=== PATIENT | female | born 1955 | race Caucasian/White ===

== ENCOUNTER → 2020-01-20 15:35 | Outpatient (CLI) | payer MEDICARE, SELFPAY ==
--- NOTE | ~2020-01-20 | MM_ITS ---
EXAMINATION: MM screening [facility] BI w shruthi HISTORY: Screening mammogram, family history of breast cancer in her mother. TECHNIQUE: Craniocaudal and mediolateral oblique 3-D tomosynthesis images were obtained and synthetic 2-D images were generated. CAD analysis was submitted and interpreted. COMPARISON: 07/26/2018, 06/16/2017, 05/18/2016, 03/06/2015 BREAST PARENCHYMAL COMPOSITION: There are scattered areas of fibroglandular density. FINDINGS: RIGHT BREAST: There is a possible mass in the middle third of the outer breast best appreciated 6.5 c m from the nipple on the craniocaudal view. LEFT BREAST: There is no evidence of suspicious mass, calcification, or architectural distortion to s uggest malignancy. There has been no significant interval change. IMPRESSION: 1. Possible right breast mass. 2. Additional mammographic views and possible breast ultrasound are recommended. BI-RADS Category 0: Incomplete: Needs additional imaging evaluation. Reviewed, dictated and finalized at location A. IMPRESSION: 1. Possible right breast mass. 2. Additional mammographic views and possible breast ultrasound are recommended . BI-RADS Category 0: Incomplete: Needs additional imaging evaluation.
== END ==
PROVIDERS: PCP Family Medicine; Visit Provider Nurse Practitioner Family
DX: Z12.31 Encounter for screening mammogram for malignant neoplasm of breast (principal); R92.8 Other abnormal and inconclusive findings on diagnostic imaging of breast
CPT/HCPCS: 77063; 77067

== ENCOUNTER → 2020-01-31 09:22 | Outpatient (CLI) | payer MEDICARE, SELFPAY ==
--- NOTE | ~2020-01-31 | MMUS_ITS ---
EXAMINATION: MM diagnostic mammo unilat RT, US breast RT limited HISTORY: Follow-up right breast asymmetry TECHNIQUE: Additional 3-D tomosynthesis images of the right breast were performed and synthetic 2-D i mages were generated. CAD analysis was submitted and interpreted. High resolution right breast ultras ound was performed. COMPARISON: Comparison to multiple prior studies sequentially, with oldest reviewed study dated 03/2016. BREAST PARENCHYMAL COMPOSITION: BREAST PARENCHYMAL COMPOSITION: There are scattered areas of fibroglandular density. FINDINGS: MAMMOGRAPHIC FINDINGS: The focal asymmetry laterally in the right breast compresses with spot views. No suspicious masses, c alcifications or architectural distortion to suggest malignancy. ULTRASOUND: Right breast ultrasound: At 12:00, 3 cm from the nipple, there is a 4 mm cyst. No suspicious masses to suggest malignancy. IMPRESSION: 1. No mammographic or sonographic evidence for malignancy in the right breast. 2. Routine yearly screening mammogram and regular clinical breast examination are recommended. BI-RADS Category 2: Benign finding(s). Reviewed, dictated and finalized at location A. IMPRESSION: 1. No mammographic or sonographic evidence for malignancy in the right breast. 2. Routine yearly screening mammogram and regular clinical breast examination a re recommended. BI-RADS Category 2: Benign finding(s).
== END ==
PROVIDERS: Visit Provider Obstetrics & Gynecology Gynecology
DX: R92.8 Other abnormal and inconclusive findings on diagnostic imaging of breast (principal)
CPT/HCPCS: 76642; 77065

== ENCOUNTER → 2020-07-27 11:05 | Outpatient (CLI) | payer MEDICARE, SELFPAY ==
--- NOTE | ~2020-07-27 | DEXA_ITS ---
Bone Density Report Name: Tracie Basilio Age: 64 Sex: Female Ethnicity: White Date of : 1955 Indication: osteopenia; monitoring treatment; postmenopausal Referring Provider: Felix Gavin Study: Bone densitometry was performed. Exam Date: July 27, 2020 Accession number: [id number] Bone Density: Region BMD T-score Z-score Classification AP Spine (L1-L4) 1.142 0.9 2.8 Normal Femoral Neck (Left) 0.754 -0.9 0.8 Normal Total Hip (Left) 0.755 -1.5 -0.2 Osteopenia Femoral Neck (Right) 0.584 -2.4 -0.8 Osteopenia Total Hip (Right) 0.711 -1.9 -0.6 Osteopenia Total Hip Mean 0.733 -1.7 -0.4 Osteopenia World Health Organization criteria for BMD impression classify patients as: Normal (T-score at or above -1.0), Osteopenia (T-score between -1.0 and -2.5), or Osteoporosis (T-score at or below -2.5). 10-year Fracture Risk: FRAX not reported because: Treated for osteoporosis Previous Exams: Region Exam Age BMD T-score BMD Change BMD Change Date g/cm2 vs Baseline vs Previous AP Spine(L1-L4) 07/27/2020 64 1.142 0.9 0.126* 0.060* 02/14/2018 62 1.083 0.3 0.066* 0.066* 12/04/2015 60 1.016 -0.3 Total Hip(Left) 07/27/2020 64 0.755 -1.5 0.071* 0.057* 02/14/2018 62 0.698 -2.0 0.014 0.014 12/04/2015 60 0.684 -2.1 Total Hip(Right) 07/27/2020 64 0.711 -1.9 0.016 0.017 02/14/2018 62 0.694 -2.0 -0.001 -0.001 12/04/2015 60 0.695 -2.0 *Denotes significance at 95% confidence level, LSC for AP Spine = 0.022 g/cm2, LSC for Total Hip = 0.027 g/cm2 Clinical Information Provided by Patient: Is being treated for osteoporosis Has used the following medications: Fosamax (i.e. alendronate), Vitamin D, Calcium Patient maximum height was 62.0 Menopause Age: 54 No regular weight bearing exercise Drinks caffeinated beverages Onset of menses at age 10 Number of children 3 Impression: The patient has low bone mass, based on the Right Femoral Neck T-score. No significant bone loss was observed. Discussion: PATIENT UNDER TREATMENT WITH NO SIGNIFICANT BMD LOSS SINCE LAST EXAM. In an untreated patient, BMD typically declines with age. A lack of decline or gain is usually a sign that treatment is efficacious and fracture risk is reduced. It is important to ask patients whether they are taking their medications and to encourage continue
== END ==
PROVIDERS: PCP Family Medicine; Visit Provider Family Medicine
DX: M81.0 Age-related osteoporosis without current pathological fracture (principal); M85.852 Other specified disorders of bone density and structure, left thigh; M85.851 Other specified disorders of bone density and structure, right thigh
CPT/HCPCS: 77080

== ENCOUNTER → 2021-03-09 14:04 | Outpatient (CLI) | payer MEDICARE, SELFPAY ==
--- NOTE | ~2021-03-09 | MM_ITS ---
EXAMINATION: MM screening [facility] BI w shruthi HISTORY: Screening TECHNIQUE: Craniocaudal and mediolateral oblique 3-D tomosynthesis images were obtained and synthetic 2-D images were generated. CAD analysis was submitted and interpreted. COMPARISON: Comparison to multiple prior studies sequentially, with oldest reviewed study dated 03/2016. BREAST PARENCHYMAL COMPOSITION: There are scattered areas of fibroglandular density. FINDINGS: There is no evidence of suspicious mass, calcification, or architectural distortion to sugg est malignancy in either breast. There has been no suspicious interval change. IMPRESSION: 1. No mammographic evidence of malignancy. 2. Recommend routine screening mammography in one year. BI-RADS Category 1: Negative Reviewed, dictated and finalized at location A.
== END ==
PROVIDERS: PCP Family Medicine; Visit Provider Nurse Practitioner
DX: Z12.31 Encounter for screening mammogram for malignant neoplasm of breast (principal)
CPT/HCPCS: 77063; 77067

== ENCOUNTER → 2021-04-26 13:41 | Outpatient (CLI) | payer MEDICARE, SELFPAY ==
--- NOTE | ~2021-04-26 | MR_ITS ---
EXAMINATION: MR hip LT wo con DATE: 04/26/2021 14:37 INDICATION: Chronic left hip pain TECHNIQUE: Magnetic resonance imaging (MRI) of the left hip was performed without intravenous contra st. Sequences included full-field axial PD-weighted FS FSE and T1-weighted FSE, coronal of the pelvis with PD-weighted FS FSE, T2-weighted FSE and T1-weighted FSE, small field of view of the left hip w ith axial PD-weighted FS FSE, sagittal PD-weighted FS FSE, coronal PD-weighted FS FSE and coronal T2 weighted FSE. Additional radial T1-weighted FGR oriented orthogonal to the acetabular rim were obtai mary lou for evaluation of the labrum. COMPARISON: 02/22/2019 FINDINGS: Bones/labrum/cartilage: Alignment is normal. No fracture or avascular necrosis. Mild right hip osteoarthritis. There is unch anged 1 cm lesion at the inferomedial aspect of the right femoral head, likely benign given the lack of significant change since the prior study appearance suggesting a possible enchondroma. Interval pr ogression of now advanced osteoarthritis at the left hip. Prominent subarticular cystic changes at cramer rrounding edema at the anterosuperior to posterior superior left acetabulum. There appears to be some remodeling of the cephalad aspect of the left femoral head with additional prominent marrow edema ex tending throughout the head into the neck of the proximal left femur. Diffuse degenerative tearing of the left acetabular labrum. Moderate lumbar spondylosis. Fluid: Persistent moderate-sized left hip joint effusion. There is a large amount of fluid at the right hip joint. No other abnormal fluid collections. Soft tissues: Asymmetric mild atrophy of the musculature of the left hemipelvis and proximal left thigh relative to the contralateral right pelvis and thigh which suggests relative disuse of the left lower limb poten tially due to the advanced left hip osteoarthritis. Mild tendinopathy without discrete tear at the bi lateral proximal hamstring tendons with small amount of fluid at the right ischial tuberosity suggest ing mild associated right ischial bursitis. Mild tendinopathy at the bilateral gluteus medius minimus tendons. The bilateral gluteus medius tendons and bilateral iliopsoas tendons are normal. There are 3 low signal intensity fibroids within the uterus the largest on the left side of the fundus measurin g 1.4 cm in maximal diameter. Limited evaluation of visceral organs of the pelvis is otherwise unrema rkable. No pathologically enlarged pelvic/inguinal lymphadenopathy. IMPRESSION: 1. Interval progression of now advanced left hip osteoarthritis with unchanged likely reactive modera te sized right hip joint effusion. 2. Mild right hip osteoarthritis. 3. Mild asymmetric muscular atrophy in the left hemipelvis and proximal left thigh which given the wi despread distribution suggests this is due to disuse of the left lower limb likely due to the advance d osteoarthritis at the left hip. 4. Nonspecific 10 mm lesion at the inferomedial aspect of the right femoral head which given the lack of interval change lead greater than 2 years suggests a benign etiology such as an enchondroma. 5. Fibroid uterus. Reviewed, dictated and finalized at location A. IMPRESSION: 1. Interval progression of now advanced left hip osteoarthritis with unchanged likely reactive moderate sized right hip joint effusion. 2. Mild right hip osteoarthritis. 3. Mild asymmetric muscular atrophy in the left hemipelvis and proximal left th igh which given the widespread distribution suggests this is due to disuse of t he left lower limb likely due to the advanced osteoarthritis at the left hip. 4. Nonspecific 10 mm lesion at the inferomedial aspect of the right femoral hea d which given the lack of interval c
== END ==
PROVIDERS: PCP Family Medicine; Visit Provider Nurse Practitioner Family
DX: M25.552 Pain in left hip (principal); D25.9 Leiomyoma of uterus, unspecified; M16.11 Unilateral primary osteoarthritis, right hip
CPT/HCPCS: 73721

== ENCOUNTER → 2022-05-27 11:28 | Outpatient (CLI) | payer MEDICARE, SELFPAY ==
--- NOTE | ~2022-05-27 | MM_ITS ---
EXAMINATION: MM screening [facility] BI w shruthi HISTORY: Screening TECHNIQUE: Craniocaudal and mediolateral oblique 3-D tomosynthesis images were obtained and synthetic 2-D images were generated. CAD analysis was submitted and interpreted. COMPARISON: Comparison to multiple prior studies sequentially, with oldest reviewed study dated 03/2016. BREAST PARENCHYMAL COMPOSITION: Breast composed of scattered areas of fibroglandular density FINDINGS: There is no evidence of suspicious mass, calcification, or architectural distortion to sugg est malignancy in either breast. There has been no suspicious interval change. IMPRESSION: 1. No mammographic evidence of malignancy. 2. Recommend routine screening mammography in one year. BI-RADS Category 1: Negative Reviewed, dictated and finalized at location A. 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
== END ==
PROVIDERS: PCP Family Medicine; Visit Provider Nurse Practitioner
DX: Z12.31 Encounter for screening mammogram for malignant neoplasm of breast (principal)
CPT/HCPCS: 77063; 77067

== ENCOUNTER → 2022-07-08 13:00 | Outpatient (CLI) | payer MEDICARE, SELFPAY ==
--- NOTE | ~2022-07-08 | XR_ITS ---
Clinical Indication: Cough, shortness of breath PA and lateral views of the chest: Comparison: None Findings: The lungs are clear, without evidence of focal consolidation or pleural effusion. Cardiome diastinal silhouette is within normal limits. Bones and soft tissues are unremarkable. Impression: Normal chest. Reviewed, dictated and finalized at [facility]. VACUUM TESTER Impression: Normal chest.
== END ==
PROVIDERS: PCP Nurse Practitioner; Visit Provider Nurse Practitioner
DX: R05.9 Cough, unspecified (principal)
CPT/HCPCS: 71046

== ENCOUNTER → 2023-04-20 13:24 | Outpatient (CLI) | payer MEDICARE, SELFPAY ==
--- NOTE | ~2023-04-20 | DEXA_ITS ---
Bone Density Report Name: MASON MOORE Age: 67 Sex: Female Ethnicity: White Date of : 1955 Indication: osteopenia; monitoring treatment; postmenopausal Referring Provider: KANE JARRETT Study: Bone densitometry was performed. Exam Date: April 20, 2023 Accession number: [id number] Bone Density: Region BMD T-score Z-score Classification AP Spine (L1-L4) 1.119 0.7 2.7 Normal Femoral Neck (Right) 0.577 -2.4 -0.7 Osteopenia Total Hip (Right) 0.690 -2.1 -0.6 Osteopenia World Health Organization criteria for BMD impression classify patients as: Normal (T-score at or above -1.0), Osteopenia (T-score between -1.0 and -2.5), or Osteoporosis (T-score at or below -2.5). 10-year Fracture Risk: FRAX not reported because: Treated for osteoporosis Previous Exams: Region Exam Age BMD T-score BMD Change BMD Change Date g/cm2 vs Baseline vs Previous AP Spine(L1-L4) 04/20/2023 67 1.119 0.7 0.103* -0.023* 07/27/2020 64 1.142 0.9 0.126* 0.060* 02/14/2018 62 1.083 0.3 0.066* 0.066* 12/04/2015 60 1.016 -0.3 Total Hip(Right) 04/20/2023 67 0.690 -2.1 -0.005 -0.021 07/27/2020 64 0.711 -1.9 0.016 0.017 02/14/2018 62 0.694 -2.0 -0.001 -0.001 12/04/2015 60 0.695 -2.0 *Denotes significance at 95% confidence level, LSC for AP Spine = 0.022 g/cm2, LSC for Total Hip = 0.027 g/cm2 Clinical Information Provided by Patient: Is being treated for osteoporosis Has used the following medications: Vitamin D, Calcium Patient maximum height was 62.0 Menopause Age: 54 Drinks caffeinated beverages Onset of menses at age 10 Number of children 3 Impression: The patient has low bone mass, based on the Right Femoral Neck T-score. The BMD for the AP Spine(L1-L4) decreased, changing by -0.023 since the last DXA exam. Discussion: SIGNIFICANT BONE LOSS OBSERVED. Adherence to therapy (including calcium and vitamin D intake) should be assessed. If compliance is not a factor, review management and exclusion of secondary causes of bone loss. It is important to ask patients whether they are taking their medications and to encourage continued and appropriate compliance with their osteoporosis therapies to reduce fracture risk. It is also important to review their risk factors and encourage appropriate calcium and vitamin D intakes, exercise, fall prevention and other lifestyle measures. Follow-Up: Consider a repeat BMD and Vertebral Fracture
== END ==
PROVIDERS: PCP Nurse Practitioner Family; Visit Provider Nurse Practitioner Family
DX: M81.0 Age-related osteoporosis without current pathological fracture (principal); I10 Essential (primary) hypertension; M85.851 Other specified disorders of bone density and structure, right thigh
CPT/HCPCS: 77080

== ENCOUNTER → 2023-05-30 10:25 | Outpatient (CLI) | payer MEDICARE, SELFPAY ==
--- NOTE | ~2023-05-30 | MM_ITS ---
EXAMINATION: MM screening [facility] BI w shruthi HISTORY: Screening mammogram TECHNIQUE: Craniocaudal and mediolateral oblique 3-D tomosynthesis images were obtained and synthetic 2-D images were generated. CAD analysis was submitted and interpreted. COMPARISON: 05/27/2022, 03/09/2021 bilateral screening mammogram examinations 01/27/2020 diagnostic right mammogram and limited right breast ultrasound 01/20/2020 bilateral screening mammogram BREAST PARENCHYMAL COMPOSITION: There are scattered areas of fibroglandular density. FINDINGS: There is no evidence of suspicious mass, calcification, or architectural distortion to sugg est malignancy in either breast. There has been no suspicious interval change. IMPRESSION: 1. No mammographic evidence of malignancy. 2. Recommend routine screening mammography in one year. BI-RADS Category 1: Negative Reviewed, dictated and finalized at location A. 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
== END ==
PROVIDERS: PCP Nurse Practitioner; Visit Provider Nurse Practitioner
DX: Z12.31 Encounter for screening mammogram for malignant neoplasm of breast (principal)
CPT/HCPCS: 77063; 77067

== ENCOUNTER 2024-09-03 13:29 | Outpatient (CLI) | payer MEDICARE, SELFPAY ==
--- NOTE | ~2024-09-03 | MM_ITS ---
EXAMINATION: MM screening [facility] BI w shruthi HISTORY: Screening mammogram, family history of breast cancer in her mother. TECHNIQUE: Craniocaudal and mediolateral oblique 3-D tomosynthesis images were obtained and synthetic 2-D images were generated. CAD analysis was submitted and interpreted. COMPARISON: 05/30/2023, 05/27/2022, 03/09/2021 BREAST PARENCHYMAL COMPOSITION:Not Dense. There are scattered areas of fibroglandular density. FINDINGS: No suspicious mass, calcification, or architectural distortion are identified in either nicol ast to suggest malignancy. There has been no suspicious interval change. IMPRESSION: No mammographic evidence of malignancy. Recommend routine screening mammography in one year. BI-RADS Category 1: Negative Reviewed, dictated and finalized at location . RER OPERATOR
== END 2024-09-03 13:30 | disposition home or self-care (01) ==
LOC: MICIMG 13:30
PROVIDERS: PCP Family Medicine; Visit Provider Nurse Practitioner Women's Health
DX: Z12.31 Encounter for screening mammogram for malignant neoplasm of breast (principal)
CPT/HCPCS: 77063; 77067

== ENCOUNTER 2025-03-13 10:48 | Outpatient (CLI) | payer MEDICARE, SELFPAY ==
--- OUTSIDE RECORDS SUMMARY | 2025-03-13 11:21 | XMS_ITS | Clinical Summary ---
Author Organization [email or web address] Address [address] [place] [address] Care Team Providers Care Assistant Community Director Name Role Phone Pao Gavin MD Primary Care Provider Source Comments [facility],non-owned Affiliates and Associated Physician Practices is amultiple site organization consisting of ambulatory clinics and hospital sitesin [place] and [place]. This disclosure is being madepursuant to the Care Everywhere program and may not contain all information available regarding this patient. Last updated 18.[email or web address] Allergies Active Allergy Reactions Criticality Noted Date Comments Latex Rash Medium 05/05/2015 Medications * Be aware that medications may not be up to date on this document. Alwaysverify current medications with the patient. Probiotic Product (ACIDOPHILUS/GO AT MILK) CAPS 06/22/2016 Activ e DULoxetine (CYMBALTA) 30 MG capsule Take 60 mg by mouth 2 times daily 03/10/2021 Active traZODone (DESYREL) 50 MG tablet Take 50 mg by mouth at bedtime 06/07/2021 Active celecoxib (CELEBREX) 100 MG capsule Take 1 (one) capsule by mouth 2 times daily 60 capsule 09/10/2021 Active atenolol (Tenormin) 50 MG tablet Take 1 (one) tablet by mouth once daily 12/26/2022 Active doxycycline hyclate (Vibramycin) 50 MG capsule Take 1 (one) capsule by mouth once daily 01/05/2023 Active spironolactone (Aldactone) 100 MG tablet 11/16/2022 Active Active Problems Problem Noted Date Diagnosed Date Osteoarthritis of left hip 09/09/2021 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 Family History Medical History Relation Name Comments CVA Father Elevated Lipids Father Heart Disease Father a fib Cancer Maternal Grandfather lymphom a; Status: Heart Disease Maternal Grandmother rhemat ic fever with heart damage; Cancer - Breast Mother Depression Mother Elevated Lipids Mother Heart Disease Mother Osteoporosis Mother Cancer - Colon Paternal Grandfather CVA Paternal Grandmother Elevated Lipids Sister 1 Status: Aliv e Relation Name Status Comments Father Maternal Grandfather Maternal Grandmother Mother Paternal Grandfather Paternal Grandmother Sister 1 Alive Sister 2 Alive Social History Tobacco Use Types Packs/Day Years Used Date Smoking Tobacco: Never Smokeless Tobacco: Never Tobacco Cessation:Counseling Given: Not Answered Alcohol Use Standard Drinks/Week Comments Yes 5 (1 standard drink = 0.6 oz pur e alcohol) AUDIT-C Answer Date Recorded Frequency of Alcohol Consumption 2-3 times a wee k 09/10/2019 Average Number of Drinks 1 or 2 020 Frequency of Binge Drinking Never 09/2019 Comments No Sex and Gender Information Value Date Recorded Sex Assigned at Not on file Legal Sex Female 5:13 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 Gender Identity Not on file Sexual Orientation Not on file Last Filed Vital Signs Vital Sign Reading Time Taken Comments Blood Pressure 109/58 09/10/2021 8:28 AM NATURAL SCIENCE MANAGER Pulse 71 09/10/2021 7:26 AM NATURAL SCIENCE MANAGER Temperature 36.8 C (98.3 F) 09/10/2021 7:26 AM NATURAL SCIENCE MANAGER Respiratory Rate 16 09/10/2021 7:26 AM NATURAL SCIENCE MANAGER Oxygen Saturation 96% 09/10/2021 7:26 AM NATURAL SCIENCE MANAGER Inhaled Oxygen Concentration - - Weight 57.2 kg (126 lb 3.2 oz) 01/11/2023 9:08 A M CDT Height 157.5 cm (5' 2) 09/09/2021 6:07 AM NATURAL SCIENCE MANAGER Body Mass Index 23.08 09/09/2021 6:07 AM NATURAL SCIENCE MANAGER Plan of Treatment Health Maintenance Due Date Last Done Comments BONE DENSITY TESTING 1955 COLOGUARD (AGES 45-75) - COL ON CA SCREENING 1955 COLON MONITORING 1955 COLONOSCOPY - COLON CA SCREENING 1955 CT COLONOGRAPHY - COLON CA SCREENING 1955 Colorectal Cancer Screening 1955 FIT - COLON CA SCREENING 1955 FLEX SIG - COLON CA SCREENING 1955 LIPID TESTING 1955 MEDICARE AWV 12 MONTHS 1955 HEPATITIS C SCREENING 09/23/1971 DTAP/TDAP/TD VACCINES (1 - Tdap) 1972 PNEUMOCOCCAL VACCINE 50+ (1 of 1 - PCV) 09/28/2003 ZOSTER VACCINE (1 of 2) 09/28/2003 MAMMOGRAM 09/07/2020 09/07/2018 COVID-19 VACCINE (4 - 2023-2 5 season) 2024 05/17/2021, 09/25/2020, 09/04/2020 DEPRESSION SCREENING 07/10/2024 INFLUENZA VACCINE (#1) 2025 Respiratory Syncytial Virus (RSV) Vaccine Pt: or over 60 yrs (1 - 1-dose 75+ series) 2028 HEPATITIS B VACCINE Aged Out No longe r eligible based on patient's age to complete this topic HIB VACCINE Aged Out No longer eligi ble based on patient's age to complete this topic HPV VACCINE Aged Out No longer eligi ble based on patient's age to complete this topic MENINGOCOCCAL (Group B) VACCINE SHARED DECISION-MAKING Aged Out No longer eligible based on patient's age to complete this topic MENINGOCOCCAL GROUPS A/C/Y/W VACCINE Aged Out No longer eligible b ased on patient's age to complete this topic Medical Devices Implanted Type Area Bar Waiter/Waitress Device Identifier Shelf Expiration Date Model / Serial / Lot Shell Actb 52mm Hip 3 Hl Poly R3 Std Implanted:Qty : 1 on 09/09/2021 by Ted Macias MD at [facility] [place] Left: Hip [employer] 06/07/2031 [id number] / / [id number] Screw 6.5mm 30mm Sphrcl Head Hip Actb Implanted:Qty : 1 on 09/09/2021 by Ted Macias MD at [facility] [place] Left: Hip [employer] 04/19/2031 [id number] / / [id number] Liner Actb R3 0d 52mm 36mm Xlpe Hip Flxb Implanted:Qty : 1 on 09/09/2021 by Ted Macias MD at [facility] [place] Left: Hip [employer] 06/21/2031 [id number] / / [id number] Head Fem +0mm 06/22 Tpr 36mm Hip Oxnm Implanted:Qty : 1 on 09/09/2021 by Ted Macias MD at [facility] [place] Left: Hip [employer] 08/15/2031 [id number] / / [id number] Polarstem Implanted:Qty : 1 on 09/09/2021 by Ted Macias MD at [facility] [place] Left: Hip [employer] [id number] 12/14/2027 [id number] / / [id number] Insurance [facility] MEDICARE MEDICARE AETNA Advance Directives * Full Code (Latest Code Status on File) Date Activated Date Inactivated Comments 09/09/2021 10:23 AM 09/10/2021 3:49 PM Care Teams Assistant Community Director Relationship Specialty Start Date End Date Pao Gavin MD [address] [place] [address] PCP - General 04/05/21
--- OUTSIDE RECORDS SUMMARY | 2025-03-13 11:21 | XMS_ITS | Encounter Summary ---
Author Organization [facility] Address [address] [place] [address] Care Team Providers Care Learning And Development Officer Name Role Phone Subhash Malik MD Primary Care Provider [phone] Pao Gavin MD Primary Care Provider Encounter Details Date Type Department Care Team (Late st Contact Info) Description 12/26/2018 Lab Requisition [facility] [address] [place] [id number] Filomena Howell DO [address] [facility] [address] [place] [address] Social History Tobacco Use Types Packs/Day Years Used Date Smoking Tobacco: Never Smokeless Tobacco: Never Alcohol Use Standard Drinks/Week Comments Yes 5 (1 standard drink = 0.6 oz pur e alcohol) Comments No Sex and Gender Information Value Date Recorded Sex Assigned at Not on file Legal Sex Female 5:13 PM 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 Gender Identity Not on file Sexual Orientation Not on file documented as of this encounter Plan of Treatment Not on file documented as of this encounter Procedures Procedure Name Priority Date/Time Associated Diagnosis Comments DERMATOPATHOLOGY Routine 12/25/2018 12:0 0 AM CDT documented in this encounter Results * DERMATOPATHOLOGY (12/25/2018 12:00 AM CDT) Case Report Dermatopathology Report Case: [id number] Authorizing Provider: Filomena Howell DO Collected: 12/25/2018 12:00 AM Pathologist: Mildred Thompson MD Received: 12/26/2018 07:18 AM Specimens: A) - Skin, left upper arm B) - Skin, left back 1:20 PM CDT DERMATOPATHOLOGY LABORATORY Final Diagnosis Specimen A. 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 SKIN, left back: COMPOUND NEVUS WITH CONGENITAL FEATURES, IRRITATED (D22.5) 1:20 PM CDT DERMATOPATHOLOGY LABORATORY at 1320 CDT Clinical History A: ISK vs NMSC. B: Nevus R/O atypia. 1:20 PM CDT DERMATOPATHOLOGY LABORATORY Gross Description Specimen A: Received is one formalin filled container labeled with the patient's name and designated left upper arm. The specimen consists of a shave measuring [id number]. Jar 0. Specimen B: Received is one formalin filled container labeled with the patient's name and designated left back. The specimen consists of a shave measuring [id number]. Jar 0. 1:20 PM CDT DERMATOPATHOLOGY LABORATORY Microscopic Description Specimen A. SKIN, left upper arm: The epidermis is mildly acanthotic. There is a mild, focal lichenoid infiltrate with vacuolar changes of basilar keratinocytes and scattered necrotic keratinocytes. Specimen B. SKIN, left back: There are nests of melanocytes at the dermal-epidermal junction and within the dermis. Some melanocytes are splayed between collagen bundles and are localized around adnexal structures. 1:20 PM CDT DERMATOPATHOLOGY LABORATORY Disclaimer An external and internal positive and negative controls are appropriate for the histochemical, immunohistochemical and immunofluorescence stain(s) in this case (if any), except where stated explicitly. The performance characteristics of the stain(s) cited in this report were developed and its performance characteristic determined by the Dermatopathology Laboratory at [facility], directed by Dr. Bo Thompson. These tests need not be, and therefore are not, approved by the [place] Food and Drug Administration. The tests are used for clinical purposes. Billing Codes Specimen Charges Stain Charges 05013 95285 1 1 9 1:20 PM CDT DERMATOPATHOLOGY LABORATORY Embedded Images 9 1:20 PM CDT DERMATOPATHOLOGY LABORATORY Pathology/Cytology TISSUE SPECIMEN FROM SKIN / Unknown 12/25/2018 12/26/2018 7:18 AM CDT Miscellaneous samples (specimen) TISSUE SPECIMEN FROM SKIN / Unknown 12/25/2018 12/26/2018 7:18 AM CDT us Filomena Howell DO LAB - PATHOLOGY/CYTOLOGY ORDERABLES Final Result DERMATOPATHOLOGY LABORATORY [facility] - Department of Dermatology [address] [place] [address] [address] [phone] documented in this encounter Visit Diagnoses Not on filedocumented in this encounter Care Teams Learning And Development Officer Relationship Specialty Start Date End Date Subhash Malik MD [address] [place] [address] PCP - General 10/02/18 04/04/21 Pao Gavin MD [address] [place] [address] PCP - General 04/05/21 documented as of this encounter
== END 2025-03-13 10:49 | disposition home or self-care (01) ==
LOC: ANHAUDIO 10:49
PROVIDERS: PCP Nurse Practitioner Family; Visit Provider Nurse Practitioner Family
DX: Z00.00 Encounter for general adult medical examination without abnormal findings (principal); M25.551 Pain in right hip; I10 Essential (primary) hypertension; R73.03 Prediabetes; E78.5 Hyperlipidemia, unspecified; F51.01 Primary insomnia; F41.8 Other specified anxiety disorders; E55.9 Vitamin D deficiency, unspecified; M81.0 Age-related osteoporosis without current pathological fracture; M19.90 Unspecified osteoarthritis, unspecified site; H91.90 Unspecified hearing loss, unspecified ear; Z68.22 Body mass index [BMI] 22.0-22.9, adult
CPT/HCPCS: 92557; 92567

== ENCOUNTER 2025-04-09 11:16 | Outpatient (CLI) | payer MEDICARE, SELFPAY ==
--- NOTE | ~2025-04-09 | XR_ITS ---
EXAMINATION: XR hip RT 2V w AP pelvis, 04/09/2025 11:30 CDT HISTORY: Worsening chronic arthritic pain, LROM COMPARISON: No comparisons available. Findings: No acute fracture or malalignment. Moderate right-sided degenerative changes. Left arthroplasty noted. Soft tissues unremarkable. Impression: No acute fracture or malalignment. Reviewed, dictated and finalized at location P. Impression: No acute fracture or malalignment.
== END 2025-04-09 11:17 | disposition home or self-care (01) ==
PROVIDERS: PCP Nurse Practitioner Family; Visit Provider Nurse Practitioner Family
DX: M25.551 Pain in right hip (principal)
CPT/HCPCS: 73502

== ENCOUNTER 2025-05-08 15:10 | Outpatient (CLI) | payer MEDICARE, SELFPAY ==
--- NOTE | ~2025-05-08 | DEXA_ITS ---
Bone Density Report Name: MASON MOORE Age: 69 Sex: Female Ethnicity: White Date of : 1955 Indication: osteopenia; Referring Provider: Kaylen Cordova Study: Bone densitometry was performed. Exam Date: May 08, 2025 Accession number: [id number] Bone Density: Region BMD T-score Z-score Classification AP Spine(L2, L3, L4) 1.149 0.6 2.9 Normal Femoral Neck (Right) 0.531 -2.9 -1.0 Osteoporosis Total Hip (Right) 0.688 -2.1 -0.5 Osteopenia World Health Organization criteria for BMD impression classify patients as: Normal (T-score at or above -1.0), Osteopenia (T-score between -1.0 and -2.5), or Osteoporosis (T-score at or below -2.5). 10-year Fracture Risk: FRAX not reported because: Some T-score for Spine Total or Hip Total or Femoral Neck at or below -2.5 Previous Exams: -- Region Exam Age BMD T-score BMD Change BMD Change Date g/cm2 vs Baseline vs Previous -- AP Spine (L2-L4) 05/08/2025 69 1.149 0.6 7.8%* -3.0%* 04/20/2023 67 1.185 1.0 11.2%* -3.7%* 07/27/2020 64 1.230 1.4 15.4%* 7.0%* 02/14/2018 62 1.150 0.6 7.9%* 7.9%* 12/04/2015 60 1.066 -0.1 Total Hip(Right) 05/08/2025 69 0.688 -2.1 -1.0% -0.2% 04/20/2023 67 0.690 -2.1 -0.8% -2.9% 07/27/2020 64 0.711 -1.9 2.2% 2.4% 02/14/2018 62 0.694 -2.0 -0.2% -0.2% 12/04/2015 60 0.695 -2.0 -- *Denotes significance at 95% confidence level, LSC for AP Spine = 0.022 g/cm2, LSC for Total Hip = 0.027 g/cm2 Rate of change results reflect vertebral levels common to all scans Clinical Information Provided by Patient: Has used the following medications: Fosamax (i.e. alendronate), HRT (i.e. estrogen/hormone therapy), Vitamin D, Calcium Patient maximum height was 62 Menopause Age: 54 Drinks caffeinated beverages Onset of menses at age 10 Number of children 3 Impression: The patient has osteoporosis, based on the Right Femoral Neck T-score. The BMD for the AP Spine (L2-L4) decreased, changing by -3.0% since the last DXA exam. Discussion: INCREASED RISK OF FRACTURE. BONE DENSITY IS UNDESIRABLY LOW AT ONE OR MORE SKELETAL SITES, CONSISTENT WITH POSTMENOPAUSAL OSTEOPOROSIS. This patient's lowest T-score meets the World Health Organization's (WHO) criteria for osteoporosis at one or more sites (T-score -2.5 or below). In untreated patients, the risk of osteoporotic fracture increases approximately two-fold for each 1.0 SD decrease in T-score. Low bone density is not the only risk factor for fracture; also consider factors such as patient's age, frailty or poor health, risk of falling, risk of injury, previous osteoporotic fracture, family history of osteoporosis, cigarette smoking, low body weight, etc. Not everyone with low bone mineral density has osteoporosis; osteomalacia and other metabolic bone disorders should also be considered. Patients who have osteoporosis should be evaluated for specific diseases and conditions (secondary causes) that may cause or contribute to bone loss. The [place] [employer] Endocrinologists (AACE) and National Osteoporosis Foundation (NOF) recommend pharmacologic intervention for all postmenopausal women whose T-score is in this range. The patient should follow a healthful lifestyle (good nutrition with adequate calcium and vitamin D, and appropriate weight-bearing exercise). Follow-Up: Consider a repeat BMD and Vertebral Fracture Assessment (VFA) exam in 2 years or sooner if medically necessary, to reassess this patient's status. Reported by: SHAINA on 05/08/2025 3:33:00 PM. Reviewed, dictated and finalized at location A.
== END 2025-05-08 15:11 | disposition home or self-care (01) ==
LOC: MICIMG 15:11
PROVIDERS: PCP Nurse Practitioner Family; Visit Provider Nurse Practitioner Family
DX: M81.0 Age-related osteoporosis without current pathological fracture (principal); M85.89 Other specified disorders of bone density and structure, multiple sites; Z78.0 Asymptomatic menopausal state
CPT/HCPCS: 77080